=== PATIENT | female | born 1970 | race African-American/Black ===

== ENCOUNTER 2018-06-15 12:26 | Emergency (ER) | payer MEDICAID, OTHER ==
[~2018-06-15] VITALS: Ht 190.5 cm; Wt 127.9 kg
[2018-06-15 12:28] VITALS: BP 151/94
[2018-06-15] MEDS ORDERED: HYDROCHLOROTHIA25 MG ORAL (12:33)
[2018-06-15] MEDS ORDERED: ATENOLOL25 MG ORAL (12:33)
--- NOTE | 2018-06-15 12:38 | NUR ---
ED Nurse Note: Pt c/o due to left ear pain since yesterday. Denies fever. AAO x4, ambulates with steady gait.
[2018-06-15] MEDS ORDERED: OCUFLOX5 ML OP (12:57)
[2018-06-15] MEDS ORDERED: CORTISPORIN EAR10 ML LEFT EAR (12:57)
[2018-06-15] MEDS ORDERED: CLEOCIN150 MG ORAL (12:57)
--- NOTE | 2018-06-15 12:57 | Emergency Room Report ---
History of Present Illness General Chief Complaint: Earache Source: Patient Present Illness HPI 47-year-old female patient presents the ER with multiple complaints. Patient complaining of left ear pain and drainage for the past 4 days, bilateral eye drainage times 1 day, tooth pain times 1 day. Reports ear pain is radiating to her jaw. Denies recent swimming. Denies ringing or ear. States that she attempted to use etyl-ybq-[id number] medication with cotton swabs to help alleviate pain symptoms however did not help. Reports she does not bleed, and is still stuck in her ear. Also complaining of bilateral eye drainage. Reports drainage that both of her eyes that were yellow and green. Reports contact home that had "pinkeye" recently. States that she wears contacts but has not worn them for the past year. Denies dysuria, hematuria. Denies joint pain. Denies concern for STI. Denies vision loss. Also reports tooth pain and swelling on the left side of her jaw. Reports began yesterday. Reports history of dental problems however has not seen a dentist. Denies sore throat. Denies difficulty breathing. Denies other aggravating or relieving factors. Reports allergy to penicillin. Allergies: Coded Allergies: PENICILLINS (Verified Allergy, Unknown, 06/15/18) Patient History Past Medical History: see triage record Last Menstrual Period: 12 yrs ago Reviewed Nursing Documentation: PMH: Agreed; PSxH: Agreed Nursing Documentation-PMH Past Medical History: No History, Except For Hx Hypertension: Yes Hx Cancer: Yes - ovarian ca Review of Systems All Other Systems: negative except mentioned in HPI Physical Exam Vital Signs Date Time Temp Pulse Resp B/P (MAP) Pulse Ox O2 Delivery O2 Flow Rate FiO2 06/15/18 12:28 98.4 82 18 151/94 97 Room Air Sp02 EP Interpretation: reviewed, normal General Appearance: well appearing, no apparent distress, alert, GCS 15, non- toxic Head: normocephalic, atraumatic Eyes: bilateral eye normal inspection, bilateral eye PERRL, bilateral eye EOMI , bilateral eye other - Mild crusting noted bilaterally, mild injection ENT: hearing grossly normal, normal pharynx, no angioedema, normal voice, TMs + canals normal - Right ear, uvula midline, moist mucus membranes, other - Left ear: Mild erythema of ear canal, pain with ear pulling, TM normal, TM intact, no effusion, no foreign body, no cerumen; left lateral tooth tender to palpation , multiple caries, multiple missing teeth, tenderness to palpation, swelling noted over left lower cheek overlying infected tooth Neck: full range of motion, no meningismus, no bony tend Respiratory: lungs clear, normal breath sounds, no rhonchi, no respiratory distress, no accessory muscle use, no wheezing, speaking full sentences Cardiovascular #1: regular rate, rhythm, no edema Musculoskeletal: back normal, digits/nails normal, gait/station normal, normal range of motion, non-tender Neurologic: alert, oriented x3, responsive, motor strength/tone normal, sensory intact Psychiatric: mood/affect normal Skin: no rash Lymphatic: no adenopathy Medical Decision Making PA Attestation Dr. Oswald is my supervising Physician whom patient management has been discussed with. Diagnostic Impression: Primary Impression: Otitis externa Additional Impressions: Tooth infection Conjunctivitis ER Course Pt. presents to the ED c/o dental pain, ear pain, eye drainage. Ddx considered but are not limited to cellulitis, abscess, dental caries, gingivitis, mastoiditis, cerumen impaction, foreign body, otitis media, otitis externa, bacterial conjunctivitis, viral conjunctivitis, allergic conjunctivitis , periorbital cellulitis, sinusitis, keratitis, glaucoma. Low suspicion for mastoiditis, no swelling or erythema noted posterior to ear, no TTP. No reduction in VA, no cilliary flush, no photophobia, no FB sensation, no corneal opacity, low suspicion for keratitis, iritis. No REDDY, no vomiting, no fixed pupil, no reduction of VA, no ciliary flush, low suspicion for angle closure glaucoma. Patient has no signs of surrounding cellulitis, no pain with eye movement, does not require imaging at this time. Vital signs: are WNL, pt. is afebrile ED INTERVENTIONS: Nontoxic appearing, speaking full sentences, no active draining, mild edema, no trismus or vision changes. No signs of abscess, no fluctuance, erythema or edema. Follow-up with dentist. Will provide abx for infection to cover for possible infection. provided with contact information for dentists. Due to penicillin allergy will provide patient with clindamycin to treat. F/u with PCP and dentist for further treatment. Provided with contact information for dental clinics. Exam shows nonerythematous TM without effusion, no rupture, mildly erythematous left ear canal with pain with ear pulling, likely otitis externa. Continue taking medications as previously instructed. Avoid swimming. do not use q-tips. Follow-up with ENT specialist. Signs and symptoms consistent with conjunctivitis. No concern for STI, no joint pain, no dysuria, low suspicion for reactive arthritis. F/u with ophthalmology. F/u with control clerk food and beverage. Will provide patient with antibiotic drops, due to history of using contact lenses will provide patient with ofloxacin. ER precautions given. DISCHARGE: At this time pt. is stable for d/c to home. Patient is resting comfortably, in no acute distress, nontoxic appearing, talking and smiling without difficulty. Will provide printed patient care instructions, and any necessary prescriptions. Patient instructed to follow up with ecclesiastical worker and discuss further follow up. Care plan and follow up instructions have been discussed with the patient prior to discharge. Patient questions asked and answered. Patient reports understanding and agreement to treatment plan. ER precautions given. Patient instructed to return to ER immediately for any new or worsening of symptoms including but not limited to vision loss, fever, changes in vision. - Please note that this Emergency Department Report was dictated using [employer] software, occasionally this can lead to erroneous entry secondary to interpretation by the dictation equipment. Last Vital Signs Date Time Temp Pulse Resp B/P (MAP) Pulse Ox O2 Delivery O2 Flow Rate FiO2 06/15/18 12:28 98.4 18 151/94 97 Room Air 06/15/18 12:28 82 Disposition: HOME, SELF-CARE Condition: Stable Scripts Ofloxacin (OCUFLOX) 5 Ml Drops 5 ML OP TID, #5 ML Prov: Sang Schmitt 06/15/18 Neomycin/Polymyxin B Sulf/Hc* (CORTISPORIN EAR SOLUTION*) 10 Ml Solution 4 DROP LEFT EAR QID, #10 ML 0 Refills Prov: Sang Schmitt 06/15/18 Clindamycin HCl (Clindamycin HCl) 300 Mg Capsule 300 MG ORAL EVERY 8 HOURS for 7 Days, #21 CAP Prov: Sang Schmitt 06/15/18 Patient Instructions: Bacterial Conjunctivitis, [id number], Dental Pain, Easy -to-Read, Earache, Otitis Externa, [id number] Additional Instructions: Followup with primary care provider in 3 -5 days. Request referral to ENT. Follow-up with dentist. Keep hands clean and wash thoroughly, avoid excessive touching of face. Avoid swimming, does not use Q-tips in ear. Take medications as directed. Patient questions asked and answered. ER precautions given, patient instructed to return to ER immediately for any new or worsening of symptoms. Sang Schmitt Jun 15, 2018 12:57
[2018-06-15 13:00] VITALS: BP 144/89
--- NOTE | 2018-06-15 13:00 | NUR ---
ED Nurse Note: Pt seen, treated, medically cleared for discharge by Health Care Provider. Discharge instructions/ACI given and explained to pt and verbalized understanding of teachings. All medical devices such as ID band removed. Pt is AAO x4, ambulatory and left with all personal belongings.
== END 2018-06-15 13:05 | disposition home or self-care (01) ==
LOC: EMR 13:04
DX: H60.92 Unspecified otitis externa, left ear (principal); K04.7 Periapical abscess without sinus; H10.9 Unspecified conjunctivitis; I10 Essential (primary) hypertension; Z85.43 Personal history of malignant neoplasm of ovary; Z88.0 Allergy status to penicillin
CPT/HCPCS: 99283